=== PATIENT | female | born 1995 | race African-American/Black ===

== ENCOUNTER 2019-08-01 03:05 | Inpatient (IN) ==
[2019-08-01] MEDS ORDERED: Isovue-370 500 ML BOTTLE IVP ONE (04:32)
[2019-08-01] MEDS ORDERED: Ampicillin/Sulbactam 3,000 MG in 0.9 % Sodium Chloride Mini Bag 100 ML IVPB ONE (05:55)
[2019-08-01] MEDS ORDERED: Dexamethasone 4 MG/ML VIAL IVP ONE (05:56)
[2019-08-01 05:57] LABS: Basophils # 0.1 K/mcL (0.0-0.2); Basophils % 0.6 %; Eosinophils # 0.2 K/mcL (0.0-0.6); Eosinophils % 1.7 %; Hematocrit 35.1 % (35.3-44.9); Immature Granulocytes % 0.5 % (0-4); Lymphocytes # 2.4 K/mcL (0.6-4.6); Lymphocytes % 20.1 %; Mean Corpuscular HGB Conc 34.2 g/dL (31.6-35.5); Mean Corpuscular Hemoglobin 29.9 pg (28.0-33.3); Mean Corpuscular Volume 87.3 fL (83.0-100.0); Mean Platelet Volume 10.1 fL (9.4-12.4); Monocytes # 0.7 K/mcL (0.0-1.3); Monocytes % 5.7 %; Neutrophils # 8.4 K/mcL (1.6-8.9); Platelet Count 373 K/mcL (140-400); Red Blood Count 4.02 M/mcL (3.82-4.97); Red Cell Distribution Width 12.4 % (11.5-14.5); Segmented Neutrophils % 71.4 %; White Blood Count 11.7 K/mcL (4.3-11.1)
[2019-08-01] MEDS ORDERED: Lidocaine/EPI 1:100k 1% 30 ML VIAL INFILT ONE (06:01)
[2019-08-01 06:20] LABS: BUN/Creatinine Ratio 11 (6-26); Blood Urea Nitrogen 7 mg/dL (6-20); Calcium 9.8 mg/dL (8.6-10.3); Carbon Dioxide 23 mEq/L (23-29); Chloride 103 mEq/L (98-107); Glucose 90 mg/dL (70-105); Osmolality,Calculated 284 (280-300); Sodium 138 mEq/L (136-145); eGFR For African Americans > 60 (> 60); eGFR For Non-African Americans > 60 (> 60)
[2019-08-01] MEDS ORDERED: Tetracaine/Benzocaine/Butamben 1 SPRAY AEROSOL MM ONE (07:09)
[2019-08-01] MEDS ORDERED: Lidocaine -MPF 4% 5 ML AMPUL INFILT ONE (07:47)
[2019-08-01] MEDS ORDERED: Oxymetazoline Nasal SPRAY BOTTLE NS PRN (07:47)
[2019-08-01] MEDS ORDERED: *HR* Promethazine 25 MG/ML VIAL IVP PRN (08:53)
[2019-08-01] MEDS ORDERED: Naloxone 0.4 MG/ML INJ IVP PRN (08:53)
[2019-08-01] MEDS ORDERED: Ondansetron ODT 4 MG TAB.RAPDIS SL ONE (08:58)
[2019-08-01] MEDS ORDERED: 0.9 % Sodium Chloride 1,000 ML IVC SCH (09:00)
[2019-08-01] MEDS ORDERED: Ampicillin/Sulbactam 3,000 MG in 0.9 % Sodium Chloride 100 ML IVPB SCH (12:00)
[2019-08-01] MEDS: Dexamethasone 4 MG/ML VIAL IVP SCH ×2 (13:30→15:05)
[2019-08-01 15:53] VITALS: BP 136/88
[2019-08-01] MEDS ORDERED: Ampicillin/Sulbactam 3,000 MG in 0.9 % Sodium Chloride Mini Bag 100 ML IVPB SCH (18:00)
== END 2019-08-01 18:27 | disposition home or self-care (01) | DRG 134 ==
LOC: 3BNU 03:05 → EMEROOARM 03:05 → OBSVTOIN 13:52 → 3BNU 14:12
PROVIDERS: ADMIT Student in an Organized Health Care Education/Training Program; ATTEND Student in an Organized Health Care Education/Training Program